=== PATIENT | male | born 1955 | race Two or more races ===

== ENCOUNTER 2023-09-27 21:12 | Inpatient (IN) | payer OTHER ==
[~2023-09-27] VITALS: Ht 233.7 cm; Wt 99.8 kg
[2023-09-27] MEDS ORDERED: AMLODIPINE-OLM1 EAC2 (21:45)
[2023-09-28] MEDS ORDERED: KETOROLAC TROMETHAMINE 30 MG VIAL IV STA (01:44)
[2023-09-28] MEDS ORDERED: CIPROFLOXACIN IN 5 % DEXTROSE 400 MG/200 ML PIGGYBAG IV STA ×2 (01:44→08:27)
[2023-09-28] MEDS ORDERED: 0.9 % SODIUM CHLORIDE 1,000 ML IV ONE (01:45)
[2023-09-28 02:30] LABS: MEAN CELL VOLUME 85.5 fL (80.0-100.00); MEAN CORPUSCULAR HEMOGLOBIN 28.4 pg (27.00-32.0); MEAN CORPUSCULAR HGB CONC 33.2 g/dl (32.0-36.0); PLATELET COUNT 300 K/uL (150-450); RED BLOOD COUNT 4.92 M/uL (4.00-6.00)
[2023-09-28 03:19] LABS: ALBUMIN 3.8 gm/dL (3.4-5.0); BILIRUBIN TOTAL 0.89 mg/dL (0.3-1.2); CALCIUM 9.3 mg/dL (8.5-10.1); CREATININE SERUM 1.89 mg/dL (0.70-1.30); GFR 35.97; GLOBULINA 3.4 G/DL (2.4-3.5); POTASSIUM 4.43 mEq/L (3.5-5.1); TOTAL PROTEIN 7.2 gm/dL (6.4-8.2)
[2023-09-28 04:31] LABS: PH,URINE 5.5 (5.0-8.0); URINE APPEARANCE Turbid; URINE BILIRRUBIN Negative (NEGATIVE); URINE BLOOD Small; URINE GLUCOSE Negative (NEGATIVE); URINE LEUKOCYTE Moderate; URINE NITRATE Error; URINE PROTEIN 30 (NEGATIVE)
[2023-09-28 04:34] LABS: URINE BACTERIA 405.7 uL (0.0-1933); URINE RBC 55.7 uL (0.0-20.8); URINE WBC 3352.1 uL (0.0-23.2)
[2023-09-28 05:11] LABS: URINE MUCUS MODERATE
[2023-09-28 05:13] LABS: URINE EPITHELIAL CELLS 0-4 /HPF
[2023-09-28] MEDS ORDERED: KETOROLAC TROMETHAMINE 60 MG VIAL IM STA (08:26)
[2023-09-28] MEDS ORDERED: CIPROFLOXACIN IN 5 % DEXTROSE 400 MG/200 ML PIGGYBAG IV SCH (10:09)
[2023-09-28] MEDS ORDERED: 0.9 % SODIUM CHLORIDE 1,000 ML IV SCH (10:15)
[2023-09-28] MEDS ORDERED: SODIUM CHLORIDE 0.45 % 1,000 ML IV SCH (10:15)
[2023-09-28] MEDS ORDERED: OxyCODONE HCL/APAP UD (PERCOCET) PO PRN (21:45)
[2023-09-29 07:11] LABS: HEMATOCRIT 35.6 % (39.0-48.0); HEMOGLOBIN 11.9 g/dL (13-16.00); MEAN CORPUSCULAR HEMOGLOBIN 28.7 pg (27.00-32.0); MEAN CORPUSCULAR HGB CONC 33.4 g/dl (32.0-36.0); PLATELET COUNT 226 K/uL (150-450); RED BLOOD COUNT 4.14 M/uL (4.00-6.00); RED CELL DISTRIBUTION WIDTH 14.3 % (11.5-14.5)
[2023-09-29 07:26] LABS: INR 1.11; PARTIAL THROMBOPLASTIN TIME 31.6 SECONDS (22.0-34.0); PROTHROMBIN TIME 11.6 SECONDS (9.0-11.5)
[2023-09-29 07:29] LABS: ERYTHROCYTE SEDIMENTATION RATE 58 mm/hr
[2023-09-29 07:58] LABS: ALBUMIN 2.9 gm/dL (3.4-5.0); BILIRUBIN TOTAL 0.61 mg/dL (0.3-1.2); BILIRUBIN,CONJUGATED 0.15 mg/dL (0.0-0.2); BILIRUBIN,UNCONJUGATED 0.46 mg/dL (0.0-0.6); CREATININE SERUM 1.39 mg/dL (0.70-1.30); GFR 51.28; GLOBULINA 2.7 G/DL (2.4-3.5); MAGNESIUM 1.9 mg/dL (1.8-2.4); PHOSPHOROUS 2.3 mg/dL (2.5-4.9); POTASSIUM 4.17 mEq/L (3.5-5.1); TOTAL PROTEIN 5.6 gm/dL (6.4-8.2)
[2023-09-29 07:59] LABS: C-REACTIVE PROTEIN 26.5 MG/DL (0.00-0.29)
[2023-09-29 09:08] LABS: URINE APPEARANCE Cloudy; URINE BACTERIA 49.1 uL (0.0-1933); URINE BILIRRUBIN Negative (NEGATIVE); URINE BLOOD Trace; URINE COLOR Yellow; URINE EPITHELIAL CELLS 32.7 uL (0.0-38.8); URINE GLUCOSE Negative (NEGATIVE); URINE LEUKOCYTE Trace; URINE NITRATE Negative; URINE PROTEIN 30 (NEGATIVE); URINE RBC 11.7 uL (0.0-20.8); URINE UROBILINOGEN 0.2 E.U./dl
[2023-09-29] MEDS ORDERED: AMLODIPINE-VAL1 EACH (14:38)
[2023-09-29] MEDS ORDERED: CIPROFLOXACIN IN 5 % DEXTROSE 200 ML IV SCH (21:00)
== END 2023-09-29 14:48 | disposition left against medical advice (07) | DRG 726 ==
LOC: ER 21:13 → MEDI 09-28 11:40
PROVIDERS: General Practice; ADMIT Specialist; ATTEND Specialist
PROC: BW21ZZZ Computerized Tomography (CT Scan) of Abdomen and Pelvis (ICD-10-PCS; principal; 2023-09-28)
DX: N40.0 Benign prostatic hyperplasia without lower urinary tract symptoms (principal); N17.9 Acute kidney failure, unspecified; N12 Tubulo-interstitial nephritis, not specified as acute or chronic; N20.0 Calculus of kidney; E86.0 Dehydration; Z53.29 Procedure and treatment not carried out because of patient's decision for other reasons; Z20.822 Contact with and (suspected) exposure to COVID-19